=== PATIENT | female | born 1960 | race American Indian/Alaskan Native ===

== ENCOUNTER 2017-04-16 10:46 | Outpatient (CLI) | payer BC ==
--- NOTE | 2017-04-16 13:00 | Ultrasound Report ---
ULTRASOUND RENAL INDICATION: Chronic kidney disease. COMPARISON: None similar at this institution. FINDINGS: Renal sonography demonstrates normal renal cortical echogenicity. Grossly preserved renal contours. No hydronephrosis. Echogenic imaged liver and an approximately 1.3 cm gallstone with shadowing noted. RIGHT KIDNEY measures 11.4 x 4.6 x 5.3 cm with cortical thickness of 1.5 cm. LEFT KIDNEY estimated at 10.3 x 5.5 x 5.9 cm with cortical thickness of 1.6 cm. URINARY BLADDER suboptimally distended and assessed. CONCLUSION: No acute renal sonographic abnormality with cholelithiasis and fatty liver suspected, as described. Thank you for the opportunity to participate in this patient's care.
== END 2017-04-16 10:47 | disposition home or self-care (01) ==
LOC: US 10:46
PROVIDERS: ATTEND Internal Medicine Nephrology
DX: N18.3 Chronic kidney disease, stage 3 (moderate) (principal); K80.20 Calculus of gallbladder without cholecystitis without obstruction; N32.89 Other specified disorders of bladder
CPT/HCPCS: 76770